=== PATIENT | male | born 1950 | race Native Hawaiian/Other Pacific Islander ===

== ENCOUNTER 2017-11-19 09:10 | Outpatient (CLI) | payer OTHER | END 2017-11-19 19:38 | disposition home or self-care (01) | LOC: CT 09:10 | DX: R10.13 Epigastric pain (principal) | CPT/HCPCS: 36415; 82565; 84520; Q9963 ==

== ENCOUNTER 2019-09-12 11:28 | Outpatient (CLI) | payer OTHER | END 2019-09-12 21:00 | disposition home or self-care (01) | LOC: RESP 11:28 | DX: Z01.818 Encounter for other preprocedural examination (principal) ==

== ENCOUNTER → 2019-11-09 11:58 | Outpatient (CLI) | payer OTHER | END | disposition home or self-care (01) | LOC: AMB 11:58 | DX: Z04.1 Encounter for examination and observation following transport accident (principal) ==